=== PATIENT | female | born 1995 ===

== ENCOUNTER 2024-06-27 12:02 | Emergency (ER) | payer OTHER, SELFPAY ==
[2024-06-27 12:07] VITALS: BP 112/74
--- NOTE | 2024-06-27 12:12 | ED.GENMED ---
ED Provider Triage
<Jordon Mcqueen PA-C - Last Filed: 06/27/24 12:15>
-
Patient seen by provider in Triage?: Seen in Triage
28 year old female referred from neurologist for new onset double vision starting yesterday. History of headache. Was seen by neurology 2 days ago and MRI/A was ordered and is due at the end of the month. No fever. Neurology sent in today for
eval.
Vital signs stable through triage. Basic labs ordered. CT of head ordered through triage
Patient received medical screening assessment by healthcare provider at triage. She warrants further evaluation
History of Present Illness
<Jordon Mcqueen PA-C - Last Filed: 06/27/24 12:15>
General
Chief Complaint: Visual Problem
Time Seen by Provider: 06/27/24 15:05
<Fabián Adams PA-C - Last Filed: 06/27/24 21:09>
History of Present Illness
History of Present Illness:
28-year-old female presents to the emergency department for evaluation of diplopia beginning yesterday but worsening today. She is not following with a [facility] neurologist for ongoing headaches and has an MRI and MRI scheduled at the end of
this month. Headaches seem to improve in the past 48 hours however noticed diplopia, describes horizontal diplopia that is binocular as well as monocular in both eyes. It does not seem to vary despite extraocular motion. No photophobia, nausea,
or vomiting. Denies any upper or lower extremity weakness. Prior history of Soto's palsy
Review of Systems
<Fabián Adams PA-C - Last Filed: 06/27/24 21:09>
Review of Systems
Allergies reviewed?: Yes
All Other Systems: ROS reviewed and negative except as documented in HPI and ROS
Phy Exam
<Fabián Adams PA-C - Last Filed: 06/27/24 21:09>
Physical Exam
Physical Exam:
GEN: Well appearing, NAD, WDWN
HEENT: Oral mucosa moist, no scleral icterus, no nasal congestion
Cardiac: Regular rate
Lung: No respiratory distress, no tachypnea
MSK: No gross deformity or injuries
Skin: Good color, no pallor or jaundice, no rashes
Neuro: AO x3; slight lid lag on the left, no obvious extraocular motion deficit, no a ferret pupillary defect, otherwise cranial nerves II through XII are grossly intact BUE strength 5/5 in all shirley, sensation intact and symmetric. BLE strength
5/5 in all shirley, sensation intact and symmetric, [id number]-[id number] normal, [id number]-[id number] normal, tandem gait steady
Psych: Calm, cooperative
Course
<Jordon Mcqueen PA-C - Last Filed: 06/27/24 12:15>
Orders/Labs/Results
Orders:
Orders
06/27/24 12:08
CT Head W/o Iv Contrast Urgent
Comment:
Reason For Exam: headache, double vision
06/27/24 12:09
Test Result ONCE
06/27/24 12:15
Complete Blood Count/With Diff Urgent
Comprehensive Metabolic Panel Urgent
HCG, Serum Qualitative Screen Urgent
06/27/24 16:24
CT Angio Head W/Wo Iv Contrast [CT Head Angio W/wo Iv Contrast] Urgent
Comment:
Reason For Exam: diplopia
Abnormal Lab Results
06/27/24
12:15
MCHC 32.8 L g/dL
(33.0-37.0)
06/27/24 12:15
06/27/24 12:15
Vital Signs
Initial and Last Documented VS:
Initial Vital Signs
Temp Pulse Resp BP Pulse Ox
98.2 F 68 18 112/74 99
06/27/24 12:07 06/27/24 12:07 06/27/24 12:07 06/27/24 12:07 06/27/24 12:07
Last Documented Vital Signs
Temp Pulse Resp BP Pulse Ox
98.2 F 74 18 103/65 100
06/27/24 12:07 06/27/24 18:05 06/27/24 18:05 06/27/24 18:05 06/27/24 18:05
<Fabián Adams PA-C - Last Filed: 06/27/24 21:09>
Orders/Labs/Results
Orders:
Orders
06/27/24 12:08
CT Head W/o Iv Contrast Urgent
Comment:
Reason For Exam: headache, double vision
06/27/24 12:09
Test Result ONCE
06/27/24 12:15
Complete Blood Count/With Diff Urgent
Comprehensive Metabolic Panel Urgent
HCG, Serum Qualitative Screen Urgent
06/27/24 16:24
CT Angio Head W/Wo Iv Contrast [CT Head Angio W/wo Iv Contrast] Urgent
Comment:
Reason For Exam: diplopia
Abnormal Lab Results
06/27/24
12:15
MCHC 32.8 L g/dL
(33.0-37.0)
06/27/24 12:15
06/27/24 12:15
Vital Signs
Initial and Last Documented VS:
Initial Vital Signs
Temp Pulse Resp BP Pulse Ox
98.2 F 68 18 112/74 99
06/27/24 12:07 06/27/24 12:07 06/27/24 12:07 06/27/24 12:07 06/27/24 12:07
Last Documented Vital Signs
Temp Pulse Resp BP Pulse Ox
98.2 F 74 18 103/65 100
06/27/24 12:07 06/27/24 18:05 06/27/24 18:05 06/27/24 18:05 06/27/24 18:05
<Fabián Adams PA-C - Last Filed: 06/27/24 21:09>
MDM/Problems Addressed
MDM/Problems Addressed:
Patient does not have any clear ptosis or extraocular motion palsy on my evaluation. I discussed her case with her outpatient neurologist who request CT angiogram of the head to evaluate for aneurysmal abnormalities, if negative will continue with
outpatient follow-up.. The CTA was not indeed negative the patient was discharged stable condition. They discussed the possibility of a migraine causing her symptoms.
<Fabián Adams PA-C - Last Filed: 06/27/24 21:09>
*Critical Care Note
Total Time (30-74mins, 75-104mins- exclusive of procedures): Not Applicable
ED Attending Note
<Jordon Mcqueen PA-C - Last Filed: 06/27/24 12:15>
-
Portions of this chart may have been created with voice recognition software.� Occasional wrong word or��sound alike� substitutions may have occurred due to the inherent limitations of voice recognition software.
Discharge Plan
Departure
Patient Disposition: Home (Routine Discharge)
Date of Disposition: 06/27/24
Time of Disposition: 18:20
Patient with high blood pressure during this ER visit?: No
Discharge Problem:
Diplopia
Instructions: Double Vision (DC)
Referrals:
MAMADOU CARLOS [Other]
Quinton Chase MD [Non-Admitting Privileges] -
Interventions
Interventions:
*Risk Screen - Suicide Last Done: 06/27/24 12:10
*General Assessment Last Done: 06/27/24 12:10
*Neglect/Abuse Screening Last Done: 06/27/24 12:10
ED- Fall Risk Assessment Last Done: 06/27/24 12:46
*ED COVID-19 Vaccine History Last Done: 06/27/24 12:46
*Nursing Disposition Last Done: 06/27/24 18:34
ED- Neurological Assessment Last Done: 06/27/24 12:46
Discharge Date and Time
Discharge Date/Time: 06/27/24 18:34
Print Language: AUSTRIAN
[2024-06-27 12:28] LABS: % Basophils 0.2 % (0-2); % Eosinophils 1.8 % (0-6); % Immature Granulocytes 0.2 % (0-0.5); % Lymphocytes 45.3 % (20.5-51.1); % Monocytes 5.4 % (1.7-9.3); % Neutrophils 47.1 % (42.2-75.2); Absolute Eosinophils 0.1 10^3/uL (0-0.7); Absolute Lymphocytes 2.3 10^3/uL (1.2-3.4); Absolute Monocytes 0.3 10^3/uL (0.1-0.6); Absolute Neutrophils 2.4 10^3/uL (1.4-6.5); Hematocrit 39.6 % (37.0-47.0); Mean Corp Hgb Conc. 32.8 g/dL (33.0-37.0); Mean Corpuscular Hgb 29.7 pg (27.0-31.0); Mean Corpuscular Volume 90.6 fL (81.0-99.0); Nucleated Red Blood Cells % 0 %; Platelet Count 243 10^3/uL (130-400); Red Blood Cell Count 4.37 10^6/uL (4.20-5.40); Red Cell Dist. Width 13.2 % (11.5-14.5)
[2024-06-27 12:40] LABS: HCG, Serum Qualitative Screen Negative
[2024-06-27 12:47] LABS: ALT (SGPT) 16 U/L (0-35); AST (SGOT) 29 U/L (14-36); Albumin 4.5 g/dl (3.5-5.0); Alkaline Phosphatase 55 U/L (38-126); Blood Urea Nitrogen 13 mg/dl (7-17); Calcium 9.5 mg/dl (8.4-10.2); Carbon Dioxide 29 mmol/L (22-30); Chloride 101 mmol/L (98-107); Glucose 88 mg/dl (70-99); Sodium 140 mmol/L (135-145); Total Bilirubin 0.4 mg/dl (0.2-1.3); Total Protein 7.3 g/dl (6.3-8.2); eGFR > 60.00
[2024-06-27 18:05] VITALS: BP 103/65
== END 2024-06-27 18:34 | disposition home or self-care (01) ==
LOC: EMR 12:02
PROVIDERS: Physician Assistant; EMERGENCY PHYSICIAN Emergency Medicine
DX: H53.2 Diplopia (principal)
CPT/HCPCS: 99284; 70450; 70496; 80053; 84703; 85025; Q9967